=== PATIENT | female | born 1980 | race Caucasian/White ===

== ENCOUNTER → 2017-04-14 | Outpatient (CLI) | payer OTHER | LOC: M SMT 14:35 | DX: R06.02 Shortness of breath (principal) | CPT/HCPCS: 71046 ==

== ENCOUNTER 2017-04-30 13:35 | Emergency (ER) | payer OTHER | END 2017-04-30 15:16 | disposition home or self-care (01) | LOC: M ED 13:35 | DX: Z04.1 Encounter for examination and observation following transport accident (principal); S16.1XXA Strain of muscle, fascia and tendon at neck level, initial encounter; V43.52XA Car driver injured in collision with other type car in traffic accident, initial encounter; Y92.410 Unspecified street and highway as the place of occurrence of the external cause; I10 Essential (primary) hypertension | CPT/HCPCS: 72125 ==

== ENCOUNTER 2019-01-03 12:01 | Day surgery (SDC) | payer OTHER ==
[~2019-01-03] VITALS: Ht 167.6 cm; Wt 105.6 kg
[~2019-01-03 12:01] MED LIST: ALBU83IN INH; FLUT22IN INH; HYDR12.55 PO; MICA5TAB PO; NS 1,000 ML IV SCH; ZYRTTAB8 PO
[2019-01-03] MEDS ORDERED: PROPOFOL 200 MG/20 ML VIAL As Ordered ONE (12:29)
[2019-01-03] MEDS ORDERED: LIDOCAINE 2% INJ 100 MG/5 ML SDV (FOR ANES.) As Ordered ONE (12:29)
[2019-01-03] MEDS ORDERED: fentaNYL 100 MCG/2 ML INJECTION (J3010) As Ordered ONE (13:23)
--- NOTE | 2019-01-03 13:39 | ROOR ---
Patient Name: Edith Jackson Procedure Date: 01/03/2019 1:10 PM Date of : 1980 Age: 38 Room: [facility] Gender: Female Note Status: Finalized Procedure: Upper Endoscopy + Biopsies Indications: Nausea with vomiting Providers: Chase Pino MD Referring MD: PAMELLA CAN MD Requesting Provider: Medicines: Monitored Anesthesia Care Complications: No immediate complications. Procedure: Pre-Anesthesia Assessment: - The heart rate, respiratory rate, oxygen saturations, blood pressure, adequacy of pulmonary ventilation, and response to care were monitored throughout the procedure. The Endoscope was introduced through the mouth, and advanced to the second part of duodenum. The upper GI endoscopy was accomplished without difficulty. The patient tolerated the procedure well. Findings: The Z-line was variable and was found 35 cm from the incisors. Multiple biopsies were obtained with cold forceps for evaluation to rule out Meza's Esophagus randomly at the gastroesophageal junction. A small hiatal hernia was present. No other significant abnormalities were identified in a careful examination of the stomach. Biopsies were taken with a cold forceps in the gastric antrum for Helicobacter pylori testing. The exam of the duodenum was otherwise normal. Impression: - Z-line variable, 35 cm from the incisors. - Small hiatal hernia. - Multiple biopsies were obtained at the gastroesophageal junction. - Biopsies were taken with a cold forceps for Helicobacter pylori testing. - The examination was otherwise normal. Recommendation: - Patient has a contact number available for emergencies. The signs and symptoms of potential delayed complications were discussed with the patient. Return to normal activities tomorrow. Written discharge instructions were provided to the patient. - High fiber diet. - Discharge patient to home. - Follow an antireflux regimen. - Continue present medications. - Await pathology results. - Telephone GI office for pathology results in 1 week. - The findings and recommendations were discussed with the patient's family. Chase Pino MD Chase Pino MD 01/03/2019 1:38:46 PM Electronically signed by Chase Pino MD Number of Addenda: 0 Note Initiated On: 01/03/2019 1:10 PM Estimated Blood Loss: Estimated blood loss: none.
[2019-01-03 14:03] VITALS: BP 134/85
== END 2019-01-03 14:06 | disposition home or self-care (01) ==
LOC: M OPP 12:01
PROVIDERS: ATTEND Internal Medicine Gastroenterology
DX: K22.8 Other specified diseases of esophagus (principal); K44.9 Diaphragmatic hernia without obstruction or gangrene; R11.2 Nausea with vomiting, unspecified; Z79.899 Other long term (current) drug therapy
CPT/HCPCS: 43239; 88305; J3010

== ENCOUNTER → 2020-06-06 | Outpatient (CLI) | payer OTHER ==
[~2020-06-06] MED LIST changes: -NS 1,000 ML IV SCH
--- NOTE | 2020-06-09 12:25 | ECHO ---
DATE OF PROCEDURE: 06/06/2020 Age: 40 Gender: Female REFERRING PHYSICIAN: Gabriel Townsend DO. PATIENT LOCATION: Outpatient. REASON FOR STUDY: Heart murmur. 2D MEASUREMENTS: IVS 0.9 cm LV 4.5 cm LVPW 1.1 cm LA 3.3 cm Aorta 2.9 cm IVC 1.8 cm DOPPLER MEASUREMENT Peak velocity across the aortic valve 1.3 m/s Peak velocity across the LVOT 0.7 m/s Mitral E 0.75 Mitral A 0.59 with a ratio of 1.3 Maximum tricuspid valve velocity 2.0 m/s 2D COMMENTS: 1. Normal left ventricular size, wall thickness, and normal global left ventricular systolic function. The estimated left ventricular systolic ejection fraction is 55% to 65%. 2. Normal left atrium. Normal right atrium and right ventricle. 3. There was increased mobility of the atrial septum consistent with interatrial septal aneurysm without evidence of defect or shunt. 4. Normal aortic root. 5. Trace pericardial effusion noted, no evidence of cardiac tamponade. 6. Mildly calcified aortic valve with normal leaflet excursion. Normal mitral valve, tricuspid valve, and pulmonic valve. The proximal pulmonary artery branches were not well visualized. 7. The inferior vena cava was normal in size, central venous pressure is most likely normal. DOPPLER: Only trace tricuspid regurgitation detected. The calculated pulmonary artery systolic pressure was normal. IMPRESSION: 1. Normal global left ventricular systolic and diastolic function. 2. Trace tricuspid regurgitation with a normal calculated pulmonary artery systolic pressure. 3. Trace pericardial effusion, no evidence of cardiac tamponade. 4. Benign interatrial septal aneurysm without evidence of shunt. MTDD
== END ==
LOC: M CARPUL 11:33
PROVIDERS: ATTEND Family Medicine
DX: R01.1 Cardiac murmur, unspecified (principal)

== ENCOUNTER → 2024-12-24 | Outpatient (CLI) | payer OTHER ==
[~2024-12-24] MED LIST changes: +ALBU2.5V10 INH; -ALBU83IN INH
== END ==
LOC: M WHC 08:37
PROVIDERS: ATTEND Family Medicine
DX: N92.6 Irregular menstruation, unspecified (principal)

== ENCOUNTER → 2025-02-19 | Outpatient (CLI) | payer OTHER | LOC: M WHC 12:26 | PROVIDERS: ATTEND Family Medicine | DX: N85.00 Endometrial hyperplasia, unspecified (principal) ==